=== PATIENT | female | born 1935 | race Caucasian/White ===

== ENCOUNTER 2020-03-17 17:10 | Inpatient (IN) ==
[2020-03-17] MEDS ORDERED: ONDANSETRON ODT 4 MG TABLET PO STA (17:52)
[2020-03-17] MEDS ORDERED: DIPH/TET/ACEL PERT BOOSTER VACCINE 0.5 ML VIAL IM ONE (17:52)
[2020-03-17] MEDS ORDERED: ceFAZolin 1,000 MG VIAL IM ONE (17:54)
[2020-03-17] MEDS ORDERED: SODIUM CHLORIDE 0.9% 500 ML IV STA (18:56)
[2020-03-17] MEDS ORDERED: DEXTROSE 50% 25 GM/50 ML VIAL IV PRN (19:13)
[2020-03-17] MEDS ORDERED: GLUCAGON 1 MG VIAL IM PRN (19:13)
[2020-03-17] MEDS ORDERED: hydrALAZINE 20 MG/1 ML VIAL IV PRN (19:19)
[2020-03-17 19:28] LABS: Basophils # 0.1 10*3/uL (0.0-0.2); Basophils % 0.4 % (0.0-0.8); Eosinophils # 0.1 10*3/uL (0.0-0.87); Eosinophils % 0.6 % (0.00-10.9); Hematocrit 43.7 VOL% (35.7-47.0); Hemoglobin 15.5 GM/DL (12.0-16.0); Immature Granulocytes % 0.4 %; Immature Granulocytes Absolute 0.06 #; Lymphocytes % 7.4 % (21.3-54.2); Mean Corpuscular HGB Conc 35.5 GM/DL (32-36); Mean Corpuscular Volume 88.8 FL (87-102); Mean Platelet Volume 11.6 FL (9.6-12.0); Monocytes % 3.6 % (1.7-12.7); Neutrophils % 87.6 % (38.7-73.9); Platelet Count 131 T/CUMM (130-400); Red Blood Count 4.92 MC/CUMM (3.8-5.5); Red Cell Distribution Width 12.5 % (9.3-17.3); White Blood Count 14.1 T/CUMM (4-12)
[2020-03-17 19:36] LABS: PT Patient Result 10.9 SECS (9.8-11.9)
[2020-03-17 19:43] LABS: Bilirubin,Urine Negative (Negative); Blood, Urine Negative (Negative); Glucose,Urine (UA) Negative (Negative); Ketones,Urine 5 mg/dL (Negative); Nitrite,Urine Negative (Negative); Protein,Urine Negative; RBC,Urine 2 /HPF (0-4); Urine Appearance CLEAR (Clear); Urine Color Straw (Yellow); Urine Specific Gravity 1.006 (1.001-1.035); Urine Urobilinogen < 2.0 EU/DL (0.2-1.0); WBC,Urine <1 /HPF (0-6)
[2020-03-17 19:47] LABS: Albumin 3.8 G/DL (3.4-5.0); Bilirubin,Total 0.4 MG/DL (0.2-1.0); Calcium 8.9 MG/DL (8.5-10.1); Osmolality,Calculated 273.2 MOS/KG (273-304); Total Protein 7.4 G/DL (6.4-8.3)
[2020-03-17] MEDS ORDERED: ONDANSETRON 4 MG/2 ML VIAL ONE (19:56)
[2020-03-17] MEDS ORDERED: MORPHINE 4 MG/1 ML VIAL ONE (19:57)
[2020-03-17] MEDS ORDERED: ONDANSETRON 4 MG/2 ML VIAL IV STA (20:08)
[2020-03-17] MEDS ORDERED: MORPHINE 4 MG/1 ML VIAL IV STA (20:08)
[2020-03-17] MEDS: HEPARIN 5,000 UNIT/1 ML VIAL SUBCUT SCH (23:20)
[2020-03-17] MEDS: BRIMONIDINE 0.1% OPH SOLN 5 ML BOTTLE BOTH EYES SCH (23:22)
[2020-03-18] MEDS: MORPHINE 4 MG/1 ML VIAL IV PRN ×3 (03:14→22:13)
[2020-03-18] MEDS: HEPARIN 5,000 UNIT/1 ML VIAL SUBCUT SCH (05:27)
[2020-03-18 06:06] LABS: Basophils # 0.1 10*3/uL (0.0-0.2); Basophils % 0.6 % (0.0-0.8); Eosinophils # 0.2 10*3/uL (0.0-0.87); Eosinophils % 2.7 % (0.00-10.9); Hematocrit 37.6 VOL% (35.7-47.0); Hemoglobin 13.2 GM/DL (12.0-16.0); Immature Granulocytes % 0.5 %; Immature Granulocytes Absolute 0.04 #; Lymphocytes # 1.4 10*3/uL (1.4-4.0); Mean Corpuscular HGB Conc 35.1 GM/DL (32-36); Mean Corpuscular Volume 89.5 FL (87-102); Mean Platelet Volume 12.6 FL (9.6-12.0); Monocytes % 7.9 % (1.7-12.7); Neutrophils % 71.3 % (38.7-73.9); Platelet Count 120 T/CUMM (130-400); Red Cell Distribution Width 12.6 % (9.3-17.3); White Blood Count 8.1 T/CUMM (4-12)
[2020-03-18 06:18] LABS: Calcium 8.3 MG/DL (8.5-10.1); Risk Ratio 3.53; Thyroid Stimulating Hormone 5.35 uIU/ml (0.358-3.74)
[2020-03-18] MEDS: PANTOPRAZOLE 40 MG TABLET PO SCH (09:45)
[2020-03-18] MEDS: FOLIC ACID 1 MG TABLET PO SCH (09:45)
[2020-03-18] MEDS ORDERED: POTASSIUM CHLORIDE 20 MEQ TABLET PO ONE (10:49)
[2020-03-18] MEDS: BRIMONIDINE 0.1% OPH SOLN 5 ML BOTTLE BOTH EYES SCH ×2 (10:52→22:13)
[2020-03-18] MEDS: ONDANSETRON 4 MG/2 ML VIAL IV PRN ×2 (10:52→22:19)
[2020-03-18] MEDS: ASPIRIN EC 81 MG TABLET PO SCH (12:22)
[2020-03-18] MEDS: ROSUVASTATIN 20 MG TABLET PO SCH (22:29)
[2020-03-19] MEDS: MORPHINE 4 MG/1 ML VIAL IV PRN ×2 (05:14→20:47)
[2020-03-19] MEDS: ONDANSETRON 4 MG/2 ML VIAL IV PRN (05:21)
[2020-03-19 05:39] LABS: Basophils # 0.1 10*3/uL (0.0-0.2); Basophils % 0.8 % (0.0-0.8); Eosinophils # 0.4 10*3/uL (0.0-0.87); Eosinophils % 4.8 % (0.00-10.9); Hematocrit 38.4 VOL% (35.7-47.0); Hemoglobin 13.2 GM/DL (12.0-16.0); Immature Granulocytes % 0.4 %; Immature Granulocytes Absolute 0.04 #; Lymphocytes # 1.6 10*3/uL (1.4-4.0); Lymphocytes % 17.4 % (21.3-54.2); Mean Corpuscular HGB Conc 34.4 GM/DL (32-36); Mean Corpuscular Volume 90.1 FL (87-102); Mean Platelet Volume 12.4 FL (9.6-12.0); Monocytes % 7.4 % (1.7-12.7); Neutrophils % 69.2 % (38.7-73.9); Platelet Count 109 T/CUMM (130-400); Red Blood Count 4.26 MC/CUMM (3.8-5.5); Red Cell Distribution Width 12.6 % (9.3-17.3); White Blood Count 9.2 T/CUMM (4-12)
[2020-03-19 06:10] LABS: Calcium 8.5 MG/DL (8.5-10.1); Free T4 (Free Thyroxine) 1.36 NG/DL (0.76-1.46)
[2020-03-19] MEDS: FOLIC ACID 1 MG TABLET PO SCH (09:13)
[2020-03-19] MEDS: ASPIRIN EC 81 MG TABLET PO SCH (09:13)
[2020-03-19] MEDS: PANTOPRAZOLE 40 MG TABLET PO SCH (09:13)
[2020-03-19] MEDS: BRIMONIDINE 0.1% OPH SOLN 5 ML BOTTLE BOTH EYES SCH ×2 (09:13→20:46)
[2020-03-19] MEDS ORDERED: LIDOCAINE 1% 5 ML VIAL ONE (14:48)
[2020-03-19] MEDS ORDERED: ROPIVACAINE 0.5% 30 ML VIAL ONE (14:48)
[2020-03-19] MEDS ORDERED: DEXAMETHASONE 4 MG/1 ML VIAL ONE (14:48)
[2020-03-19] MEDS ORDERED: MIDAZOLAM 2 MG/2 ML VIAL ONE (15:32)
[2020-03-19] MEDS ORDERED: fentaNYL 100 MCG/2 ML VIAL ONE (15:33)
[2020-03-19] MEDS ORDERED: ceFAZolin 1,000 MG VIAL ONE (16:08)
[2020-03-19] MEDS ORDERED: ETOMIDATE 40 MG/20 ML VIAL IV ONE (16:08)
[2020-03-19] MEDS ORDERED: ROCURONIUM 50 MG/5 ML VIAL IV ONE ×2 (16:09)
[2020-03-19] MEDS ORDERED: SODIUM CHLORIDE 0.9% 100 ML IV ONE (16:28)
[2020-03-19] MEDS ORDERED: TRANEXAMIC ACID 1,000 MG/10 ML VIAL ONE (16:28)
[2020-03-19] MEDS ORDERED: ACETAMINOPHEN 1,000 MG/100 ML VIAL IV ONE (16:38)
[2020-03-19] MEDS ORDERED: ONDANSETRON 4 MG/2 ML VIAL ONE (16:41)
[2020-03-19] MEDS ORDERED: NEOSTIGMINE 10 MG/10 ML VIAL ONE (16:49)
[2020-03-19] MEDS ORDERED: GLYCOPYRROLATE 0.4 MG/2 ML VIAL ONE (16:49)
[2020-03-19] MEDS ORDERED: PROMETHAZINE INJ 25 MG in SODIUM CHLORIDE 0.9% 50 ML IV PRN (16:54)
[2020-03-19] MEDS ORDERED: ePHEDrine 50 MG/ML VIAL ONE (16:54)
[2020-03-19] MEDS ORDERED: ONDANSETRON 4 MG/2 ML VIAL IV PRN (16:54)
[2020-03-19] MEDS ORDERED: MEPERIDINE 25 MG/1 ML VIAL IV PRN (16:54)
[2020-03-19] MEDS ORDERED: diphenhydrAMINE 50 MG/1 ML VIAL IV PRN (16:54)
[2020-03-19] MEDS ORDERED: SEVOFLURANE 1 UNIT/15 MINUTE INH ONE (17:09)
[2020-03-19] MEDS: ROSUVASTATIN 20 MG TABLET PO SCH (20:47)
[2020-03-20] MEDS ORDERED: ZALEPLON 5 MG CAPSULE PO PRN ×2 (01:21→01:54)
[2020-03-20 05:15] LABS: Basophils % 0.2 % (0.0-0.8); Eosinophils % 0.1 % (0.00-10.9); Hematocrit 37.7 VOL% (35.7-47.0); Hemoglobin 12.8 GM/DL (12.0-16.0); Immature Granulocytes % 0.5 %; Immature Granulocytes Absolute 0.05 #; Lymphocytes # 0.8 10*3/uL (1.4-4.0); Mean Corpuscular Volume 91.1 FL (87-102); Mean Platelet Volume 12.4 FL (9.6-12.0); Monocytes % 6.6 % (1.7-12.7); Neutrophils % 84.6 % (38.7-73.9); Platelet Count 117 T/CUMM (130-400); Red Blood Count 4.14 MC/CUMM (3.8-5.5); Red Cell Distribution Width 12.4 % (9.3-17.3); White Blood Count 10.5 T/CUMM (4-12)
[2020-03-20 05:38] LABS: Calcium 8.5 MG/DL (8.5-10.1); Osmolality,Calculated 269.4 MOS/KG (273-304)
[2020-03-20] MEDS: FOLIC ACID 1 MG TABLET PO SCH (09:29)
[2020-03-20] MEDS: ASPIRIN EC 81 MG TABLET PO SCH (09:29)
[2020-03-20] MEDS: PANTOPRAZOLE 40 MG TABLET PO SCH (09:29)
[2020-03-20] MEDS: BRIMONIDINE 0.1% OPH SOLN 5 ML BOTTLE BOTH EYES SCH ×2 (09:30→20:06)
[2020-03-20] MEDS: MORPHINE 4 MG/1 ML VIAL IV PRN (10:52)
[2020-03-20] MEDS ORDERED: diphenhydrAMINE CAP 25 MG CAPSULE PO PRN (19:06)
[2020-03-20] MEDS: ONDANSETRON 4 MG/2 ML VIAL IV PRN (20:06)
[2020-03-20] MEDS: ROSUVASTATIN 20 MG TABLET PO SCH (20:06)
[2020-03-21 04:52] LABS: Basophils # 0.1 10*3/uL (0.0-0.2); Basophils % 0.5 % (0.0-0.8); Eosinophils # 0.3 10*3/uL (0.0-0.87); Eosinophils % 2.1 % (0.00-10.9); Hematocrit 36.6 VOL% (35.7-47.0); Hemoglobin 12.7 GM/DL (12.0-16.0); Immature Granulocytes % 0.5 %; Immature Granulocytes Absolute 0.07 #; Lymphocytes # 1.8 10*3/uL (1.4-4.0); Lymphocytes % 13.4 % (21.3-54.2); Mean Corpuscular HGB Conc 34.7 GM/DL (32-36); Mean Corpuscular Volume 89.7 FL (87-102); Mean Platelet Volume 11.9 FL (9.6-12.0); Monocytes % 9.6 % (1.7-12.7); Neutrophils % 73.9 % (38.7-73.9); Platelet Count 136 T/CUMM (130-400); Red Blood Count 4.08 MC/CUMM (3.8-5.5); Red Cell Distribution Width 12.5 % (9.3-17.3); White Blood Count 13.1 T/CUMM (4-12)
[2020-03-21 05:10] LABS: Calcium 8.6 MG/DL (8.5-10.1); Osmolality,Calculated 270.4 MOS/KG (273-304)
[2020-03-21] MEDS: FOLIC ACID 1 MG TABLET PO SCH (10:08)
[2020-03-21] MEDS: ASPIRIN EC 81 MG TABLET PO SCH (10:08)
[2020-03-21] MEDS: PANTOPRAZOLE 40 MG TABLET PO SCH (10:08)
[2020-03-21 11:39] VITALS: BP 133/54
[2020-03-21] MEDS: BRIMONIDINE 0.1% OPH SOLN 5 ML BOTTLE BOTH EYES SCH (11:48)
== END 2020-03-21 16:00 | DRG 522 ==
LOC: N.ED 17:10 → SUATTDRO 19:13 → N.EDINP 19:13 → N.3E 20:44
PROVIDERS: ADMIT Internal Medicine; ATTEND Internal Medicine

== ENCOUNTER 2020-06-19 12:01 | Observation (INO) ==
[2020-06-19 13:25] LABS: Basophils % 0.3 % (0.0-0.8); Eosinophils # 0.2 10*3/uL (0.0-0.87); Eosinophils % 1.9 % (0.00-10.9); Hematocrit 38.3 VOL% (35.7-47.0); Hemoglobin 12.8 GM/DL (12.0-16.0); Immature Granulocytes % 0.3 %; Immature Granulocytes Absolute 0.03 #; Lymphocytes # 1.7 10*3/uL (1.4-4.0); Mean Corpuscular HGB Conc 33.4 GM/DL (32-36); Mean Corpuscular Volume 90.8 FL (87-102); Mean Platelet Volume 12.1 FL (9.6-12.0); Monocytes % 7.5 % (1.7-12.7); Platelet Count 129 T/CUMM (130-400); Red Blood Count 4.22 MC/CUMM (3.8-5.5); Red Cell Distribution Width 13.2 % (9.3-17.3)
[2020-06-19 13:55] LABS: Albumin 3.4 G/DL (3.4-5.0); Bilirubin,Total 0.6 MG/DL (0.2-1.0); Potassium 3.6 MMOL/L (3.5-5.1); Total Protein 6.3 G/DL (5.0-7.5)
[2020-06-19] MEDS ORDERED: GLUCAGON 1 MG VIAL IM PRN (14:38)
[2020-06-19] MEDS ORDERED: ACETAMINOPHEN 325 MG TABLET PO PRN (14:38)
[2020-06-19] MEDS ORDERED: ONDANSETRON 4 MG/2 ML VIAL IV PRN (14:38)
[2020-06-19] MEDS ORDERED: hydrALAZINE 20 MG/1 ML VIAL IV PRN (14:38)
[2020-06-19] MEDS ORDERED: DEXTROSE 50% 25 GM/50 ML VIAL IV PRN (14:38)
[2020-06-19] MEDS ORDERED: ENOXAPARIN 40 MG/0.4 ML SYRINGE SUBCUT SCH (15:00)
[2020-06-19 15:07] LABS: Thyroid Stimulating Hormone 1.62 uIU/ml (0.358-3.74); VLDL CHOLESTEROL 19.6 MG/DL
[2020-06-19 16:21] LABS: Hematocrit 37.4 VOL% (35.7-47.0); Hemoglobin 12.7 GM/DL (12.0-16.0)
[2020-06-19] MEDS: cefTRIAXone 1,000 MG in SYRINGE 1 EACH IV SCH (16:35)
[2020-06-19] MEDS: metroNIDAZOLE INJ 500 MG in PREMIX 1 EACH IV SCH ×2 (16:41→23:30)
[2020-06-19] MEDS: LACTATED RINGERS 1,000 ML IV SCH (16:41)
[2020-06-19] MEDS: PANTOPRAZOLE 40 MG VIAL IV SCH (20:55)
[2020-06-19] MEDS ORDERED: MELATONIN 3 MG TABLET PO PRN (21:04)
[2020-06-19 22:33] LABS: Hematocrit 35.3 VOL% (35.7-47.0); Hemoglobin 11.9 GM/DL (12.0-16.0)
[2020-06-20 05:40] LABS: Basophils % 0.6 % (0.0-0.8); Eosinophils # 0.3 10*3/uL (0.0-0.87); Eosinophils % 4.9 % (0.00-10.9); Hematocrit 36.3 VOL% (35.7-47.0); Hemoglobin 12.4 GM/DL (12.0-16.0); Immature Granulocytes % 0.1 %; Immature Granulocytes Absolute 0.01 #; Lymphocytes # 2.2 10*3/uL (1.4-4.0); Lymphocytes % 32.8 % (21.3-54.2); Mean Corpuscular HGB Conc 34.2 GM/DL (32-36); Mean Corpuscular Volume 90.1 FL (87-102); Mean Platelet Volume 12.6 FL (9.6-12.0); Monocytes % 8.8 % (1.7-12.7); Neutrophils % 52.8 % (38.7-73.9); Platelet Count 109 T/CUMM (130-400); Red Blood Count 4.03 MC/CUMM (3.8-5.5); Red Cell Distribution Width 13.1 % (9.3-17.3); White Blood Count 6.8 T/CUMM (4-12)
[2020-06-20 06:10] LABS: Calcium 8.6 MG/DL (8.5-10.1); Osmolality,Calculated 278.4 MOS/KG (273-304); Potassium 3.5 MMOL/L (3.5-5.1)
[2020-06-20] MEDS: metroNIDAZOLE INJ 500 MG in PREMIX 1 EACH IV SCH (06:30)
[2020-06-20] MEDS: LACTATED RINGERS 1,000 ML IV SCH (06:30)
[2020-06-20 07:18] VITALS: BP 167/62
[2020-06-20] MEDS: cefTRIAXone 1,000 MG in SYRINGE 1 EACH IV SCH (08:10)
[2020-06-20] MEDS: PANTOPRAZOLE 40 MG VIAL IV SCH (08:10)
== END 2020-06-20 12:04 | disposition home health service (06) ==
LOC: N.ED 12:01 → N.EDINP 12:01 → N.5E 15:23
PROVIDERS: ADMIT Internal Medicine; ATTEND Internal Medicine

== ENCOUNTER 2020-10-31 10:36 | Inpatient (IN) ==
[2020-10-31 13:44] LABS: Basophils % 0.5 % (0.0-0.8); Eosinophils # 0.5 10*3/uL (0.0-0.87); Eosinophils % 5.3 % (0.00-10.9); Hematocrit 38.2 VOL% (35.7-47.0); Hemoglobin 12.7 GM/DL (12.0-16.0); Immature Granulocytes % 0.3 %; Immature Granulocytes Absolute 0.03 #; Lymphocytes # 1.5 10*3/uL (1.4-4.0); Lymphocytes % 17.2 % (21.3-54.2); Mean Corpuscular HGB Conc 33.2 GM/DL (32-36); Mean Corpuscular Volume 90.5 FL (87-102); Mean Platelet Volume 12.6 FL (9.6-12.0); Neutrophils % 70.7 % (38.7-73.9); Platelet Count 112 T/CUMM (130-400); Red Blood Count 4.22 MC/CUMM (3.8-5.5); Red Cell Distribution Width 13.8 % (9.3-17.3); White Blood Count 8.7 T/CUMM (4-12)
[2020-10-31 13:54] LABS: PT Patient Result 11.2 SECS (10.5-12.0); Partial Thromboplastin Time 26.8 SECS (23.9-33.8)
[2020-10-31 14:06] LABS: Albumin 3.6 G/DL (3.4-5.0); Bilirubin,Total 0.5 MG/DL (0.20-1.00); Osmolality,Calculated 270.4 MOS/KG (273-304); Potassium 4.1 MMOL/L (3.5-5.1); Total Protein 6.4 G/DL (6.4-8.2)
[2020-10-31] MEDS ORDERED: HYDROmorphone 2 MG/1 ML VIAL IV STA (14:17)
[2020-10-31] MEDS ORDERED: ONDANSETRON 4 MG/2 ML VIAL IV STA (14:17)
[2020-10-31] MEDS ORDERED: ACETAMINOPHEN 325 MG TABLET PO PRN (14:36)
[2020-10-31] MEDS ORDERED: GLUCAGON 1 MG VIAL IM PRN (14:36)
[2020-10-31] MEDS ORDERED: BISACODYL 5 MG TABLET PO PRN (14:36)
[2020-10-31] MEDS ORDERED: DEXTROSE 50% 25 GM/50 ML VIAL IV PRN (14:36)
[2020-10-31] MEDS ORDERED: ONDANSETRON 4 MG/2 ML VIAL IV PRN (14:36)
[2020-10-31 15:28] LABS: Bilirubin,Urine Negative (Negative); Blood, Urine Negative (Negative); Glucose,Urine (UA) Negative (Negative); Ketones,Urine Negative (Negative); Nitrite,Urine Negative (Negative); Protein,Urine Negative; RBC,Urine 1 /HPF (0-4); Squamous Epithelial Cell,Urine Occasional /HPF (0-10); Urine Appearance CLEAR (Clear); Urine Color Colorless (Yellow); Urine Specific Gravity 1.003 (1.001-1.035); Urine Urobilinogen < 2.0 EU/DL (0.2-1.0)
[2020-10-31] MEDS: LACTATED RINGERS 1,000 ML IV SCH (15:30)
[2020-10-31] MEDS: ENOXAPARIN 30 MG/0.3 ML SYRINGE SUBCUT SCH (15:32)
[2020-10-31] MEDS: CALCIUM (CARBONATE) 500 MG TABLET PO SCH (20:54)
[2020-10-31] MEDS: DOCUSATE SODIUM 100 MG CAPSULE PO SCH (20:54)
[2020-11-01] MEDS: LACTATED RINGERS 1,000 ML IV SCH ×2 (03:54→17:11)
[2020-11-01 04:57] LABS: Basophils % 0.7 % (0.0-0.8); Eosinophils # 0.4 10*3/uL (0.0-0.87); Eosinophils % 6.4 % (0.00-10.9); Hemoglobin 11.9 GM/DL (12.0-16.0); Immature Granulocytes % 0.3 %; Immature Granulocytes Absolute 0.02 #; Lymphocytes # 1.9 10*3/uL (1.4-4.0); Lymphocytes % 31.1 % (21.3-54.2); Mean Corpuscular Volume 89.1 FL (87-102); Mean Platelet Volume 12.4 FL (9.6-12.0); Monocytes % 9.3 % (1.7-12.7); Neutrophils % 52.2 % (38.7-73.9); Platelet Count 89 T/CUMM (130-400); Red Blood Count 3.93 MC/CUMM (3.8-5.5); Red Cell Distribution Width 13.7 % (9.3-17.3); White Blood Count 5.9 T/CUMM (4-12)
[2020-11-01 05:27] LABS: Calcium 8.4 MG/DL (8.5-10.1); Potassium 3.6 MMOL/L (3.5-5.1)
[2020-11-01 06:02] LABS: Hypochromasia Slight; Microcytosis 1+
[2020-11-01 06:03] LABS: Platelet Estimate Decreased
[2020-11-01] MEDS: DOCUSATE SODIUM 100 MG CAPSULE PO SCH ×2 (09:06→21:52)
[2020-11-01] MEDS: CALCIUM (CARBONATE) 500 MG TABLET PO SCH ×2 (09:06→21:52)
[2020-11-01] MEDS ORDERED: hydrALAZINE 20 MG/1 ML VIAL IV PRN (12:00)
[2020-11-01] MEDS ORDERED: propofoL 200 MG/20 ML VIAL IV ONE (14:18)
[2020-11-01] MEDS ORDERED: LIDOCAINE 2% 5 ML VIAL ONE (14:18)
[2020-11-01] MEDS ORDERED: ROCURONIUM 50 MG/5 ML VIAL IV ONE (14:18)
[2020-11-01] MEDS ORDERED: ETOMIDATE 40 MG/20 ML VIAL IV ONE (14:18)
[2020-11-01] MEDS ORDERED: fentaNYL 100 MCG/2 ML VIAL ONE (14:18)
[2020-11-01] MEDS ORDERED: SEVOFLURANE 1 UNIT/15 MINUTE INH ONE ×3 (14:21→15:38)
[2020-11-01] MEDS ORDERED: LACTATED RINGERS 1,000 ML IV ONE (14:38)
[2020-11-01] MEDS ORDERED: ceFAZolin 1,000 MG VIAL ONE (14:50)
[2020-11-01] MEDS ORDERED: ONDANSETRON 4 MG/2 ML VIAL ONE (14:58)
[2020-11-01] MEDS ORDERED: DEXAMETHASONE 4 MG/1 ML VIAL ONE (14:58)
[2020-11-01] MEDS ORDERED: ACETAMINOPHEN INJ 1,000 MG/100 ML VIAL IV ONE (14:59)
[2020-11-01] MEDS ORDERED: GLYCOPYRROLATE 0.4 MG/2 ML VIAL ONE ×2 (15:15→15:38)
[2020-11-01] MEDS ORDERED: NEOSTIGMINE 10 MG/10 ML VIAL ONE (15:16)
[2020-11-01] MEDS ORDERED: MEPERIDINE 25 MG/1 ML VIAL IV PRN (15:39)
[2020-11-01] MEDS ORDERED: ONDANSETRON 4 MG/2 ML VIAL IV PRN (15:39)
[2020-11-01] MEDS: ENOXAPARIN 30 MG/0.3 ML SYRINGE SUBCUT SCH (17:10)
[2020-11-01] MEDS: BRIMONIDINE 0.1% OPH SOLN 5 ML BOTTLE BOTH EYES SCH (21:53)
[2020-11-02] MEDS: LACTATED RINGERS 1,000 ML IV SCH ×2 (05:46→08:08)
[2020-11-02] MEDS: DOCUSATE SODIUM 100 MG CAPSULE PO SCH ×2 (08:06→21:03)
[2020-11-02] MEDS: ASCORBIC ACID 500 MG TABLET PO SCH (08:06)
[2020-11-02] MEDS: FOLIC ACID 1 MG TABLET PO SCH (08:06)
[2020-11-02] MEDS: CALCIUM (CARBONATE) 500 MG TABLET PO SCH ×2 (08:06→21:02)
[2020-11-02] MEDS ORDERED: BIOTIN 1 MG PO SCH (09:00)
[2020-11-02] MEDS ORDERED: PSYLLIUM HUSK 0.52 GM PO SCH (09:00)
[2020-11-02 09:15] LABS: Basophils % 0.4 % (0.0-0.8); Eosinophils # 0.1 10*3/uL (0.0-0.87); Eosinophils % 1.2 % (0.00-10.9); Hematocrit 35.6 VOL% (35.7-47.0); Hemoglobin 12.1 GM/DL (12.0-16.0); Immature Granulocytes % 0.4 %; Immature Granulocytes Absolute 0.03 #; Lymphocytes # 1.5 10*3/uL (1.4-4.0); Lymphocytes % 19.4 % (21.3-54.2); Mean Corpuscular Volume 89.9 FL (87-102); Mean Platelet Volume 12.1 FL (9.6-12.0); Monocytes % 6.5 % (1.7-12.7); Neutrophils % 72.1 % (38.7-73.9); Platelet Count 116 T/CUMM (130-400); Red Blood Count 3.96 MC/CUMM (3.8-5.5); Red Cell Distribution Width 13.4 % (9.3-17.3); White Blood Count 7.8 T/CUMM (4-12)
[2020-11-02] MEDS: lisinopriL 10 MG TABLET PO SCH (09:24)
[2020-11-02 09:32] LABS: Calcium 8.3 MG/DL (8.5-10.1); Potassium 3.9 MMOL/L (3.5-5.1)
[2020-11-02] MEDS: ENOXAPARIN 30 MG/0.3 ML SYRINGE SUBCUT SCH (15:05)
[2020-11-02] MEDS: BRIMONIDINE 0.1% OPH SOLN 5 ML BOTTLE BOTH EYES SCH (21:06)
[2020-11-03 05:41] LABS: Basophils # 0.1 10*3/uL (0.0-0.2); Basophils % 0.7 % (0.0-0.8); Eosinophils # 0.3 10*3/uL (0.0-0.87); Eosinophils % 4.9 % (0.00-10.9); Hematocrit 32.7 VOL% (35.7-47.0); Hemoglobin 11.3 GM/DL (12.0-16.0); Immature Granulocytes % 0.3 %; Immature Granulocytes Absolute 0.02 #; Lymphocytes # 1.7 10*3/uL (1.4-4.0); Lymphocytes % 24.8 % (21.3-54.2); Mean Corpuscular HGB Conc 34.6 GM/DL (32-36); Mean Corpuscular Volume 90.1 FL (87-102); Mean Platelet Volume 12.5 FL (9.6-12.0); Monocytes % 6.6 % (1.7-12.7); Neutrophils % 62.7 % (38.7-73.9); Platelet Count 102 T/CUMM (130-400); Red Blood Count 3.63 MC/CUMM (3.8-5.5); Red Cell Distribution Width 13.7 % (9.3-17.3); White Blood Count 6.8 T/CUMM (4-12)
[2020-11-03 06:10] LABS: Calcium 8.8 MG/DL (8.5-10.1); Osmolality,Calculated 272.8 MOS/KG (273-304); Potassium 3.6 MMOL/L (3.5-5.1)
[2020-11-03] MEDS ORDERED: hydroCHLOROthiazide 25 MG TABLET PO SCH (09:00)
[2020-11-03] MEDS: FOLIC ACID 1 MG TABLET PO SCH (09:30)
[2020-11-03] MEDS: DOCUSATE SODIUM 100 MG CAPSULE PO SCH (09:30)
[2020-11-03] MEDS: CALCIUM (CARBONATE) 500 MG TABLET PO SCH (09:30)
[2020-11-03] MEDS: lisinopriL 10 MG TABLET PO SCH (09:30)
[2020-11-03] MEDS: ASCORBIC ACID 500 MG TABLET PO SCH (09:30)
[2020-11-03 11:50] VITALS: BP 171/51
[2020-11-03] MEDS: ENOXAPARIN 30 MG/0.3 ML SYRINGE SUBCUT SCH (14:28)
[2020-11-04 12:43] LABS: 25-Hydroxy D Total 36 ng/mL; 25-Hydroxy D2 < 4.0 ng/mL; 25-Hydroxy D3 36 ng/mL
== END 2020-11-03 16:48 | disposition home health service (06) | DRG 481 ==
LOC: N.ED 10:36 → N.EDINP 14:36 → SUATTDRO 14:36 → N.3E 16:31
PROVIDERS: ADMIT Internal Medicine; ATTEND Internal Medicine

== ENCOUNTER 2022-05-23 08:03 | Inpatient (IN) ==
[2022-05-23] MEDS ORDERED: ALBUTEROL/IPRATROPIUM 3 ML NEB RESP TX STA (09:13)
[2022-05-23 09:18] LABS: Basophils # 0.1 10*3/uL (0.0-0.2); Basophils % 0.6 % (0.0-0.8); Eosinophils # 0.2 10*3/uL (0.0-0.87); Eosinophils % 2.4 % (0.00-10.9); Hematocrit 37.3 VOL% (35.7-47.0); Hemoglobin 11.7 GM/DL (12.0-16.0); Immature Granulocytes % 0.4 %; Immature Granulocytes Absolute 0.04 #; Lymphocytes # 1.3 10*3/uL (1.4-4.0); Lymphocytes % 13.2 % (21.3-54.2); Mean Corpuscular HGB Conc 31.4 GM/DL (32-36); Monocytes # 0.6 10*3/uL (0.11-0.8); Monocytes % 5.7 % (1.7-12.7); Neutrophils % 77.7 % (38.7-73.9); Platelet Count 137 T/CUMM (130-400); Red Blood Count 4.24 MC/CUMM (3.8-5.5); Red Cell Distribution Width 15.9 % (9.3-17.3); White Blood Count 9.92 T/CUMM (4-12)
[2022-05-23 09:33] LABS: Albumin 3.3 G/DL (3.4-5.0); Bilirubin,Total 0.6 MG/DL (0.20-1.00); Calcium 8.8 MG/DL (8.5-10.1); Osmolality,Calculated 284.3 MOS/KG (273-304); Potassium 4.1 MMOL/L (3.5-5.1)
[2022-05-23] MEDS ORDERED: FUROSEMIDE 40 MG/4 ML VIAL IV STA (10:18)
[2022-05-23] MEDS ORDERED: hydrALAZINE 20 MG/1 ML VIAL IV STA (10:46)
[2022-05-23] MEDS ORDERED: ACETAMINOPHEN 325 MG TABLET PO PRN (12:06)
[2022-05-23] MEDS ORDERED: DOCUSATE SODIUM 100 MG CAPSULE PO PRN (12:06)
[2022-05-23] MEDS ORDERED: hydrALAZINE 20 MG/1 ML VIAL IV PRN (12:06)
[2022-05-23] MEDS ORDERED: ONDANSETRON 4 MG/2 ML VIAL IV PRN (12:06)
[2022-05-23] MEDS: ENOXAPARIN 40 MG/0.4 ML SYRINGE SUBCUT SCH (13:00)
[2022-05-23] MEDS ORDERED: ASPIRIN 325 MG TABLET PO ONE (15:04)
[2022-05-23] MEDS ORDERED: ENOXAPARIN 30 MG/0.3 ML SYRINGE SUBCUT ONE (15:05)
[2022-05-23] MEDS ORDERED: FUROSEMIDE 40 MG/4 ML VIAL IV SCH (16:00)
[2022-05-23] MEDS: FUROSEMIDE 40 MG/4 ML VIAL IV SCH (16:23)
[2022-05-23] MEDS: carvediloL 3.125 MG TABLET PO SCH (21:46)
[2022-05-23] MEDS: ATORVASTATIN 20 MG TABLET PO SCH (21:46)
[2022-05-23] MEDS: MELATONIN 3 MG TABLET PO PRN (22:32)
[2022-05-24] MEDS ORDERED: tiZANidine 4 MG TABLET PO ONE (01:48)
[2022-05-24 05:52] LABS: Basophils % 0.5 % (0.0-0.8); Eosinophils # 0.2 10*3/uL (0.0-0.87); Eosinophils % 2.7 % (0.00-10.9); Hematocrit 35.9 VOL% (35.7-47.0); Hemoglobin 11.5 GM/DL (12.0-16.0); Immature Granulocytes % 0.4 %; Immature Granulocytes Absolute 0.03 #; Lymphocytes # 1.9 10*3/uL (1.4-4.0); Lymphocytes % 24.5 % (21.3-54.2); Mean Corpuscular Volume 85.7 FL (87-102); Mean Platelet Volume 12.2 FL (9.6-12.0); Monocytes # 0.7 10*3/uL (0.11-0.8); Monocytes % 9.3 % (1.7-12.7); Neutrophils % 62.6 % (38.7-73.9); Platelet Count 135 T/CUMM (130-400); Red Blood Count 4.19 MC/CUMM (3.8-5.5); Red Cell Distribution Width 15.8 % (9.3-17.3); White Blood Count 7.75 T/CUMM (4-12)
[2022-05-24 07:47] LABS: Calcium 9.1 MG/DL (8.5-10.1); Osmolality,Calculated 278.7 MOS/KG (273-304); Potassium 3.8 MMOL/L (3.5-5.1)
[2022-05-24] MEDS ORDERED: amLODIPine 5 MG TABLET PO SCH (09:00)
[2022-05-24] MEDS ORDERED: ISOSORBIDE MONONITRATE 30 MG TABLET PO SCH (09:00)
[2022-05-24 09:41] LABS: % Iron Saturation 10.9 % (18-50)
[2022-05-24 09:48] LABS: Folate > 24.00 NG/ML (5.38-24.0); Vitamin B12 342 PG/ML (211-911)
[2022-05-24] MEDS: FUROSEMIDE 40 MG/4 ML VIAL IV SCH ×2 (10:14→16:43)
[2022-05-24] MEDS: ASPIRIN EC 81 MG TABLET PO SCH (10:15)
[2022-05-24] MEDS: FOLIC ACID 1 MG TABLET PO SCH (10:16)
[2022-05-24] MEDS: carvediloL 3.125 MG TABLET PO SCH ×2 (10:16→20:43)
[2022-05-24] MEDS: ASCORBIC ACID 500 MG TABLET PO SCH (10:18)
[2022-05-24] MEDS: PANTOPRAZOLE 40 MG TABLET PO SCH (10:18)
[2022-05-24] MEDS: CALCIUM (CARBONATE)/VITAMIN D 600 MG-400 UNIT TABLET PO SCH (10:27)
[2022-05-24] MEDS: PSYLLIUM POWDER 3.7 GM/PACK PO SCH (10:28)
[2022-05-24] MEDS: ENOXAPARIN 40 MG/0.4 ML SYRINGE SUBCUT SCH (12:30)
[2022-05-24] MEDS: ATORVASTATIN 20 MG TABLET PO SCH (20:43)
[2022-05-24] MEDS: MELATONIN 3 MG TABLET PO PRN (20:46)
[2022-05-25 06:07] LABS: Basophils # 0.1 10*3/uL (0.0-0.2); Basophils % 0.6 % (0.0-0.8); Eosinophils # 0.3 10*3/uL (0.0-0.87); Eosinophils % 3.6 % (0.00-10.9); Hematocrit 35.8 VOL% (35.7-47.0); Hemoglobin 11.5 GM/DL (12.0-16.0); Immature Granulocytes % 0.5 %; Immature Granulocytes Absolute 0.04 #; Lymphocytes # 1.7 10*3/uL (1.4-4.0); Lymphocytes % 20.4 % (21.3-54.2); Mean Corpuscular HGB Conc 32.1 GM/DL (32-36); Mean Corpuscular Volume 85.2 FL (87-102); Mean Platelet Volume 12.1 FL (9.6-12.0); Monocytes # 0.8 10*3/uL (0.11-0.8); Monocytes % 9.2 % (1.7-12.7); Neutrophils % 65.7 % (38.7-73.9); Platelet Count 143 T/CUMM (130-400); Red Cell Distribution Width 15.8 % (9.3-17.3); White Blood Count 8.28 T/CUMM (4-12)
[2022-05-25 06:23] LABS: Calcium 9.1 MG/DL (8.5-10.1); Osmolality,Calculated 279.7 MOS/KG (273-304); Potassium 3.3 MMOL/L (3.5-5.1)
[2022-05-25] MEDS ORDERED: DIAZEPAM 5 MG TABLET PO ONE (08:03)
[2022-05-25] MEDS ORDERED: MAGNESIUM SULF RIDER 2 GM/50 ML PREMIX IV PRN (08:03)
[2022-05-25] MEDS ORDERED: diphenhydrAMINE CAP 25 MG CAPSULE PO ONE (08:03)
[2022-05-25] MEDS ORDERED: POTASSIUM CHLORIDE RIDER 10 MEQ/100 ML PREMIX IV PRN (08:03)
[2022-05-25] MEDS ORDERED: DEXTROSE 5% NACL 0.45% 1,000 ML IV SCH (08:30)
[2022-05-25] MEDS ORDERED: POTASSIUM CHLORIDE 20 MEQ TABLET PO ONE (08:48)
[2022-05-25] MEDS ORDERED: LOSARTAN 25 MG TABLET PO SCH (09:00)
[2022-05-25] MEDS ORDERED: HEPARIN/NACL 0.9% 2 UNITS/ML 2,000 UNIT/1,000 ML BAG IV ONE (09:10)
[2022-05-25] MEDS ORDERED: LIDOCAINE 1%/EPI INJ 20 ML VIAL ONE (09:10)
[2022-05-25] MEDS: PANTOPRAZOLE 40 MG TABLET PO SCH (09:21)
[2022-05-25] MEDS: ASPIRIN EC 81 MG TABLET PO SCH (09:23)
[2022-05-25] MEDS ORDERED: fentaNYL 100 MCG/2 ML VIAL ONE (09:40)
[2022-05-25] MEDS ORDERED: MIDAZOLAM 2 MG/2 ML VIAL ONE (09:40)
[2022-05-25] MEDS: ISOSORBIDE MONONITRATE 30 MG TABLET PO SCH (10:57)
[2022-05-25] MEDS: PSYLLIUM POWDER 3.7 GM/PACK PO SCH (10:58)
[2022-05-25] MEDS: carvediloL 3.125 MG TABLET PO SCH ×2 (10:58→20:36)
[2022-05-25] MEDS: FUROSEMIDE 40 MG/4 ML VIAL IV SCH (10:58)
[2022-05-25] MEDS: amLODIPine 10 MG TABLET PO SCH (10:58)
[2022-05-25] MEDS: FOLIC ACID 1 MG TABLET PO SCH (10:58)
[2022-05-25] MEDS: FERROUS SULFATE 325 MG TABLET PO SCH (10:58)
[2022-05-25] MEDS: ASCORBIC ACID 500 MG TABLET PO SCH (10:58)
[2022-05-25] MEDS: ENOXAPARIN 40 MG/0.4 ML SYRINGE SUBCUT SCH (13:14)
[2022-05-25] MEDS: VALSARTAN 80 MG TABLET PO SCH (13:14)
[2022-05-25] MEDS: CALCIUM (CARBONATE)/VITAMIN D 600 MG-400 UNIT TABLET PO SCH (20:16)
[2022-05-25] MEDS: ATORVASTATIN 20 MG TABLET PO SCH (20:36)
[2022-05-25] MEDS: MELATONIN 3 MG TABLET PO PRN (20:41)
[2022-05-26 05:00] LABS: Basophils # 0.1 10*3/uL (0.0-0.2); Basophils % 0.6 % (0.0-0.8); Eosinophils # 0.3 10*3/uL (0.0-0.87); Eosinophils % 4.3 % (0.00-10.9); Hematocrit 36.3 VOL% (35.7-47.0); Immature Granulocytes % 0.3 %; Immature Granulocytes Absolute 0.02 #; Lymphocytes # 2.4 10*3/uL (1.4-4.0); Lymphocytes % 29.8 % (21.3-54.2); Mean Corpuscular HGB Conc 33.1 GM/DL (32-36); Mean Corpuscular Volume 86.4 FL (87-102); Mean Platelet Volume 11.9 FL (9.6-12.0); Monocytes # 0.8 10*3/uL (0.11-0.8); Monocytes % 9.6 % (1.7-12.7); Neutrophils % 55.4 % (38.7-73.9); Platelet Count 152 T/CUMM (130-400); Red Cell Distribution Width 15.6 % (9.3-17.3); White Blood Count 7.89 T/CUMM (4-12)
[2022-05-26 05:29] LABS: Calcium 9.1 MG/DL (8.5-10.1); Osmolality,Calculated 278.7 MOS/KG (273-304); Potassium 3.7 MMOL/L (3.5-5.1)
[2022-05-26 05:34] LABS: Risk Ratio 2.94
[2022-05-26] MEDS ORDERED: SPIRONOLACTONE 25 MG TABLET PO SCH (09:00)
[2022-05-26] MEDS ORDERED: FUROSEMIDE 40 MG TABLET PO SCH (09:00)
[2022-05-26] MEDS: ASCORBIC ACID 500 MG TABLET PO SCH (10:08)
[2022-05-26] MEDS: amLODIPine 10 MG TABLET PO SCH (10:08)
[2022-05-26] MEDS: VALSARTAN 80 MG TABLET PO SCH (10:08)
[2022-05-26] MEDS: FERROUS SULFATE 325 MG TABLET PO SCH (10:08)
[2022-05-26] MEDS: carvediloL 3.125 MG TABLET PO SCH (10:08)
[2022-05-26] MEDS: ISOSORBIDE MONONITRATE 30 MG TABLET PO SCH (10:08)
[2022-05-26] MEDS: PANTOPRAZOLE 40 MG TABLET PO SCH (10:08)
[2022-05-26] MEDS: FOLIC ACID 1 MG TABLET PO SCH (10:08)
[2022-05-26] MEDS: PSYLLIUM POWDER 3.7 GM/PACK PO SCH (10:09)
[2022-05-26] MEDS: ASPIRIN EC 81 MG TABLET PO SCH (10:09)
[2022-05-26] MEDS: CALCIUM (CARBONATE)/VITAMIN D 600 MG-400 UNIT TABLET PO SCH (10:10)
[2022-05-26 12:21] VITALS: BP 116/49
== END 2022-05-26 13:35 | disposition home or self-care (01) | DRG 280 ==
LOC: N.ED 08:03 → N.EDINP 12:03 → SUATTDRO 12:03 → N.TELES 19:18
PROVIDERS: ADMIT Internal Medicine; ATTEND Internal Medicine
PROC: CLCCHCL (ICD-10-PCS; 2022-05-25 10:15)